=== PATIENT | female | born 1995 | race African-American/Black ===

== ENCOUNTER 2016-11-07 15:03 | Emergency (ER) | payer OTHER ==
[2016-11-07] MEDS ORDERED: KETOROLAC 30 MG/ML VIAL (J1885) As Ordered ONE (19:06)
--- NOTE | 2016-11-07 19:07 | REP ---
Chest x-ray: Two views. History: Chest pain . Comparison study: No comparisons . Findings: The lungs are well inflated and free of infiltrate. The pleural angles are sharp. The heart size is normal. Pulmonary vasculature is not increased. No significant bony abnormality is seen. Impression: Negative chest x-ray. Signed by Girish Potter MD 11/07/2016 06:58 P
[2016-11-07 19:13] LABS: BASO # 0.1 K/mm3 (0.0-0.2); BASO % 1.5 % (0.0-1.0); EOS # 0.1 K/mm3 (0.0-0.50); LARGE UNSTAINED CELL # 0.2 K/mm3 (0.0-0.4); LARGE UNSTAINED CELL % 2.9 % (0.0-4.0); LYMPH # 2.3 K/mm3 (1.5-6.5); LYMPH % 40.5 % (24.0-44.0); MEAN CORPUSCULAR HEMOGLOBIN 28.9 pg (27.0-33.0); MEAN CORPUSCULAR HGB CONC 33.3 g/dl (32.0-36.5); MEAN CORPUSCULAR VOLUME 86.8 fl (80.0-96.0); MONO # 0.4 K/mm3 (0.0-0.8); MONO % 7.5 % (0.0-5.0); NEUTROPHILS # 2.5 K/mm3 (1.8-7.7); NEUTROPHILS % 45.6 % (36.0-66.0); PLATELET COUNT, AUTOMATED 285 k/mm3 (150-450); RED CELL DISTRIBUTION WIDTH 12.7 % (11.5-14.5); WHITE BLOOD COUNT 5.4 K/mm3 (4.0-10.0)
[2016-11-07 19:42] LABS: ALBUMIN 3.6 GM/DL (3.2-5.2); ALBUMIN/GLOBULIN RATIO 0.86 (1.00-1.93); ALKALINE PHOSPHATASE 86 U/L (45-117); ALT/SGPT 15 U/L (12-78); AMYLASE 56 U/L (25-115); ANION GAP 8 MEQ/L (8-16); AST/SGOT 8 U/L (15-37); BILIRUBIN,DIRECT < 0.1 MG/DL (0.0-0.2); BILIRUBIN,TOTAL 0.4 MG/DL (0.2-1.0); BLOOD UREA NITROGEN 6 MG/DL (7-18); CALCIUM LEVEL 8.5 MG/DL (8.5-10.1); CARBON DIOXIDE LEVEL 27 MEQ/L (21-32); CHLORIDE LEVEL 106 MEQ/L (98-107); CREATININE FOR GFR 0.86 MG/DL (0.55-1.02); GLUCOSE, FASTING 89 MG/DL (70-105); POTASSIUM SERUM 3.9 MEQ/L (3.5-5.1); SODIUM LEVEL 141 MEQ/L (136-145); TOTAL PROTEIN 7.8 GM/DL (6.4-8.2)
--- NOTE | 2016-11-07 20:00 | REPUSA ---
CLINICAL HISTORY: Abdominal pain. TECHNIQUE: Realtime sonographic images were obtained in multiple projections. COMMENTS: The liver is of normal size, parenchyma demonstrates normal echogenicity. No discrete hepatic mass is seen. There is no intra or extrahepatic biliary ductal dilatation. CBD measures 2 mm. The gallbladder is ph ysiologically distended without evidence of calculi. The gallbladder wall is not thickened and there is no pericholecystic fluid. There is no abdominal ascites. The right kidney measures 10.2 cm , free of hydronephrosis. IMPRESSION: Unremarkable study. Thank you for your kind referral of this patient.
[2016-11-07] MEDS ORDERED: ISOVUE-370 76% 100ML VIAL (Q9967) As Ordered ONE (20:04)
--- NOTE | 2016-11-07 20:50 | REPUSA ---
CLINICAL INDICATION: Evaluate for pulmonary embolism. COMPARISON: None TECHNIQUE: CT pulmonary angiogram was performed with intravenous contrast. 3D/MIPS technique was util ized with multiplanar reconstructions in sagittal and coronal projections. FINDINGS: LINES AND DEVICES: None PULMONARY ARTERY: The pulmonary artery is normal in caliber. There is no evidence of filling defects in the main, right or left main, lobar, segmental, and visualized subsegmental pulmonary arteries. AORTA: Normal in caliber with no evidence of gross dissection or aneurysm. LOWER NECK/THYROID: Thyroid gland is unremarkable. No mass, suspicious cystic lesion, or enlarged wayne nopathy. AXILLA/HILUM/MEDIASTINUM : No enlarged adenopathy, mass, suspicious cystic lesion, or fluid collectio n. HEART: Heart is normal in size without pericardial effusion. AIRWAYS, LUNGS AND PLEURA: No acute infiltrate, effusion, mass, suspicious nodule, or pneumothorax. C entral and visualized peripheral airways are patent. UPPER ABDOMEN: Visualized upper abdominal organs are unremarkable. OSSEOUS STRUCTURES: No fracture or suspicious lesion SOFT TISSUES AND THORACIC WALL : No soft tissue abnormality or hernia. OTHER: No other significant abnormalities. IMPRESSION: No evidence of pulmonary embolism.
--- NOTE | 2016-11-07 21:29 | EDDOCDS ---
Physician Documentation [facility] Name: Edwar Ray Age: 20 yrs Sex: Female : 1995 Arrival Date: 11/07/2016 Time: 15:03 Bed I6 / 28 Private MD: JEROD Garza Disposition: 11/07/16 21:19 Discharged to Home/Self Care. Impression: Chest pain, unspecified - ATYPICAL, Upper abdominal pain, unspecified. - Condition is Stable. - Discharge Instructions: Abdominal Pain, Adult, Nonspecific Chest Pain. - Prescriptions for Ibuprofen 600 mg Oral Tablet - take 1 tablet by ORAL route every 6 hours As needed take with food; 30 tablet. Prilosec 20 mg Oral Capsule - take 1 capsule by ORAL route once daily; 10 capsule. - Medication Reconciliation, Local Pharmacy Hours form. - Follow up: JEROD Garza; When: Tomorrow; Reason: Recheck today's complaints, Continuance of care. - Problem is new. - Symptoms have improved. - Notes: USE MEDICATIONS INSTRUTCED, FOLLOW UP WITH YOUR DOCTOR TOMORROW, RETURN TO THE ER IF THE SYMPTOMS WORSEN OR BECOME CONCERNING Historical: - Allergies: no known allergies; - Home Meds: 1. none - PMHx: Migraines; - PSHx: none; - Social history: Smoking status: Patient states was never smoker of tobacco. No barriers to communication noted, The patient speaks fluent Australian, Speaks appropriately for age. - Family history: Not pertinent. - : The pt / caregiver states he / she is not on anticoagulants. Home medication list is obtained from the patient. - Exposure Risk Screening:: None identified. RELIEF MAN: 11/07 15:14 LMP 09/25/2016 mlb1 Vital Signs: 15:06 BP 113 / 65; Pulse 76; Resp 18 S; Temp 98.3(O); Pulse Ox 100% on R/A; Weight 92.99 kg / gr2 205.01 lbs (R); Height 5 ft. 3 in. (160.02 cm) (R); Pain 6/10; 19:41 BP 100 / 59; Pulse 60; Resp 18; Temp 97.9; Pulse Ox 100% ; Pain 6/10; ajs 21:26 BP 99 / 67; Pulse 63; Resp 18; Temp 98.6; Pulse Ox 99% ; Pain 5/10; ajs 15:06 Body Mass Index 36.31 (92.99 kg, 160.02 cm) gr2 MDM: 17:37 ECG WITH READING ER PHYS+CARDIAG ordered. EDMS 18:07 UCG by Nursing ordered. ck7 18:39 Undress patient appropriately for examination ordered. ck7 18:39 ketorolac 30 mg IVP once ordered. ck7 18:39 IV Saline Lock ordered. ck7 18:39 NS 0.9% 1000 ml IV at bolus once ordered. ck7 18:40 Amylase Ordered. EDMS 18:40 Basic Metabolic Profile Ordered. EDMS 18:40 CBC with Diff Ordered. EDMS 18:40 Lipase Ordered. EDMS 18:40 Liver Profile Ordered. EDMS 18:40 Urinalysis Ordered. EDMS 18:40 Cardiac Marker Panel Ordered. EDMS 18:40 D-Dimer Quant Ordered. EDMS 18:41 Urine Culture Ordered. EDMS 18:41 Gallbladder US Ordered. EDMS 18:41 Chest, 2 View (pa\E\lat) Ordered. EDMS 18:41 NOTHING BY MOUTH+DIET ordered. EDMS 19:48 Basic Metabolic Profile Reviewed. ck7 19:48 CBC with Diff Reviewed. ck7 19:48 Liver Profile Reviewed. ck7 19:48 Urinalysis Reviewed. ck7 19:48 D-Dimer Quant Reviewed. ck7 19:48 Amylase Reviewed. ck7 19:48 Lipase Reviewed. ck7 19:48 Cardiac Marker Panel Reviewed. ck7 19:48 Chest, 2 View (pa\E\lat) Reviewed. ck7 19:49 [facility] [place] Agreement was scanned into [employer] and attached to record. gjb 19:49 Financial registration complete. gjb 19:52 CT Chest Angio R/O PE Ordered. EDMS 20:33 Gallbladder US Reviewed. ck7 Point of Care Testing: Urine : 18:29 hCG Reading: Negative; Control Reading: Positive; cmb Ranges: Administered Medications: 19:10 Drug: ketorolac 30 mg [ketorolac 30 mg/mL (1 mL) injection solution (1 mL)] Route: IVP; jmb Site: right antecubital; 19:10 Drug: NS 0.9% 1000 ml [sodium chloride 0.9 % intravenous solution] Route: IV; Rate: jmb bolus; Site: right antecubital; 21:28 Follow up: IV Status: Completed infusion; IV Intake: 1000ml dsf Signatures: Dispatcher [employer] Alan Mendez RN RN mlAmanda Phillips RN RN dsf Griffin Luciano, RPA-C RPA-Cck7 Kamlesh Frances RN RN jmb Beck, Gabriela gjb The chart was reviewed and I authenticate all verbal orders and agree with the evaluation and treatment provided.Attachments: 19:49 [facility] Payment Agreement sridhar MTDD
--- NOTE | 2016-11-07 21:29 | EDDOCDS ---
Nurse's Notes [facility] Name: Edwar Ray Age: 20 yrs Sex: Female : 1995 Arrival Date: 11/07/2016 Time: 15:03 Bed I6 / 28 Private MD: JEROD Garza Diagnosis: Chest pain, unspecified-ATYPICAL;Upper abdominal pain, unspecified Presentation: 11/07 15:12 Presenting complaint: Patient states: Lower abdominal pain and sub sternal chest pain mlb1 began a month ago. Risk factors: the patient reports no vaginal bleeding. Adult Sepsis Screening: The patient does not have new or worsening altered mentation. Patient's respiratory rate is less than 22. Systolic blood pressure is greater than 100. Patient has a qSOFA score of 0- Negative Sepsis Screen. Suicide/Homicide risk assessment- the patient denies having any suicidal and/or homicidal ideations and does not present with any other emotional, behavioral or mental health complaints. Status: Patient is not a branch service specialist or dependent. Transition of care: patient was not received from another setting of care. 15:12 Acuity: MADELAINE Level 3 mlb1 15:12 Method Of Arrival: Walkin/Carried/Asstd mlb1 Triage Assessment: 15:14 General: Appears in no apparent distress, comfortable, Behavior is appropriate for age, mlb1 cooperative. Pain: Location: mid-sternal area, RLQ, LLQ Pain currently is 6 out of 10 on a pain scale. 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 SODA DISPENSER: 15:14 LMP 09/25/2016 mlb1 Historical: - Allergies: no known allergies; - Home Meds: 1. none - PMHx: Migraines; - PSHx: none; - Social history: Smoking status: Patient states was never smoker of tobacco. No barriers to communication noted, The patient speaks fluent Czech, Speaks appropriately for age. - Family history: Not pertinent. - : The pt / caregiver states he / she is not on anticoagulants. Home medication list is obtained from the patient. - Exposure Risk Screening:: None identified. Screenin:10 Screening information is obtained from the patient. Fall risk: No risks identified. jmb Assistance ADL's: requires no assistance with activities of daily living. Abuse/DV Screen: The patient / caregiver reports he/she is: not in a situation that causes fear, pain or injury. Nutritional screening: No deficits noted. home support is adequate. 21:26 Advance Directives: Currently, there is no health care proxy. dsf Assessment: 16:51 General: Appears in no apparent distress, comfortable, well nourished, well groomed, ttb Behavior is appropriate for age, cooperative, pleasant. Pain: Location: lower abd. Neurological: No deficits noted. Cardiovascular: Chest pain is denied. GI: Abdomen is non- distended. Derm: Skin is normal. 19:10 General: Appears in no apparent distress, comfortable, Behavior is appropriate for age, jmb cooperative. Pain: Location: chest Pain currently is 6 out of 10 on a pain scale. Neurological: Level of Consciousness is awake, alert, obeys commands, Oriented to person, place, time, Certified Phlebotomy Technician are equal bilaterally Speech is normal, Facial symmetry appears normal, Facial symmetry: tongue is midline. Cardiovascular: Capillary refill < 3 seconds Heart tones S1 S2 present Pulses are all present. Rhythm is regular. Respiratory: Airway is patent Respiratory effort is even, unlabored, Respiratory pattern is regular, symmetrical, Breath sounds are diminished bilaterally. GI: Abdomen is obese, Bowel sounds present X 4 quads. Abd is soft X 4 quads. Derm: Skin is normal. Musculoskeletal: Range of motion intact in all extremities. 21:15 General: Appears in no apparent distress, comfortable, Behavior is appropriate for age, jmb cooperative. Neurological: Level of Consciousness is awake, alert, obeys commands, Oriented to person, place, time. Respiratory: Airway is patent Respiratory effort is even, unlabored, Respiratory pattern is regular, symmetrical. 21:26 Adult Sepsis Screening: The patient does not have new or worsening altered mentation. dsf Patient's respiratory rate is less than 22. Systolic blood pressure is less than or equal to 100 (1 point). Patient has a qSOFA score of 1- Negative Sepsis Screen. General: Appears in no apparent distress, comfortable, Behavior is appropriate for age, cooperative. Neurological: Level of Consciousness is awake, alert. Cardiovascular: Capillary refill < 3 seconds. Respiratory: Airway is patent Respiratory effort is even, unlabored, Respiratory pattern is regular, symmetrical. Derm: Skin is pink, warm & dry. Vital Signs: 15:06 BP 113 / 65; Pulse 76; Resp 18 S; Temp 98.3(O); Pulse Ox 100% on R/A; Weight 92.99 kg gr2 (R); Height 5 ft. 3 in. (160.02 cm) (R); Pain 6/10; 19:41 BP 100 / 59; Pulse 60; Resp 18; Temp 97.9; Pulse Ox 100% ; Pain 6/10; ajs 21:26 BP 99 / 67; Pulse 63; Resp 18; Temp 98.6; Pulse Ox 99% ; Pain 5/10; ajs 15:06 Body Mass Index 36.31 (92.99 kg, 160.02 cm) gr2 Vitals: 15:06 Log In Time: November 07, 2016 at 15:06. gr2 ED Course: 15:05 Patient visited by Aarti Levine. gr2 15:05 Kayla [facility] is Private Physician. gr2 15:05 Patient moved to Waiting gr2 15:07 Patient visited by Aarti Levine. gr2 15:07 Patient moved to Pre RCE gr2 15:12 Patient visited by Alan Valdes RN. mlb1 15:13 Triage Initiated mlb1 16:49 Patient moved to Triage 2 ttb 16:51 Patient visited by Margo Andrews, LEONARDO. ttb 17:32 Griffin Luciano RPA-C is PHCP. ck7 17:32 Nicci Roberson MD is Attending Physician. ck7 17:32 Patient visited by Griffin Luciano RPA-C. ck7 17:40 EKG done. (by ED staff). Reviewed by Griffin CORBETT. cmb 17:43 Patient visited by Candida Krueger. cmb 18:18 Patient visited by Griffin Luciano RPA-C. ck7 18:29 Patient visited by Candida Krueger. cmb 18:41 Patient moved to I mdr 19:10 The patient / caregiver is instructed regarding the plan of care and ED course. jmb 19:10 Cardiac Marker Panel Sent. jmb 19:10 Amylase Sent. jmb 19:10 Basic Metabolic Profile Sent. jmb 19:10 CBC with Diff Sent. jmb 19:10 Lipase Sent. jmb 19:10 Liver Profile Sent. jmb 19:10 D-Dimer Quant Sent. jmb 19:10 Inserted saline lock: 20 gauge in right antecubital area and blood collected. The jmb patient tolerated the procedure well. Labs drawn. (by ED staff). Sent per order to lab. 19:11 Chest, 2 View (pa\E\lat) Returned. EDMS 19:13 Patient visited by Kamlesh Frances RN. jmb 19:14 Patient moved to Ultrasound am17 19:29 Patient moved to I am17 19:41 Patient visited by Jennifer Beckett. ajs 19:49 [facility] Payment Agreement was scanned into [employer] and attached to record. gjb 20:13 Patient visited by Griffin Luciano RPA-C. ck7 20:13 Gallbladder US Returned. EDMS 20:20 Patient name changed from Nessayvia\S\Melina\S\Ray\S\ to Edwar\S\ \S\Ray. EDMS 20:48 Patient visited by Griffin Luciano RPA-C. ck7 21:14 CT Chest Angio R/O PE Returned. EDMS 21:16 Patient visited by Kamlesh Frances RN. jmb 21:19 Kayla [facility] is Referral Physician. ck7 21:25 Discontinued lock intact, bleeding controlled, pressure dressing applied, No dsf redness/swelling at site. No procedures done that require assistance. 21:26 Patient visited by Jennifer Beckett. ajs Administered Medications: 19:10 Drug: ketorolac 30 mg [ketorolac 30 mg/mL (1 mL) injection solution (1 mL)] Route: IVP; b Site: right antecubital; 19:10 Drug: NS 0.9% 1000 ml [sodium chloride 0.9 % intravenous solution] Route: IV; Rate: jmb bolus; Site: right antecubital; 21:28 Follow up: IV Status: Completed infusion; IV Intake: 1000ml dsf Point of Care Testing: Urine : 18:29 hCG Reading: Negative; Control Reading: Positive; cmb Ranges: Intake: 21:28 IV: 1000.00ml; Total: 1000.00ml. dsf Order Results: Lab Order: Amylase; SPEC'M 11/07/16 19:06 Test: AMYLASE; Value: 56; Range: 25-115; Units: U/L; Status: F Lab Order: Basic Metabolic Profile; SPEC'M 11/07/16 19:06 Test: GLUCOSE, FASTING; Value: 89; Range: 70-105; Units: MG/DL; Status: F Test: BLOOD UREA NITROGEN; Value: 6; Range: 7-18; Abnormal: Below low normal; Units: MG/DL; Status: F Test: CREATININE FOR GFR; Value: 0.86; Range: 0.55-1.02; Units: MG/DL; Status: F Test: SODIUM LEVEL; Value: 141; Range: 136-145; Units: MEQ/L; Status: F Test: POTASSIUM SERUM; Value: 3.9; Range: 3.5-5.1; Units: MEQ/L; Status: F Test: CHLORIDE LEVEL; Value: 106; Range: 98-107; Units: MEQ/L; Status: F Test: CARBON DIOXIDE LEVEL; Value: 27; Range: 21-32; Units: MEQ/L; Status: F Test: ANION GAP; Value: 8; Range: 8-16; Units: MEQ/L; Status: F Test: CALCIUM LEVEL; Value: 8.5; Range: 8.5-10.1; Units: MG/DL; Status: F Lab Order: CBC with Diff; SPEC'M 11/07/16 19:06 Test: WHITE BLOOD COUNT; Value: 5.4; Range: 4.0-10.0; Units: K/mm3; Status: F Test: RED BLOOD COUNT; Value: 4.76; Range: 4.00-5.40; Units: M/mm3; Status: F Test: HEMOGLOBIN; Value: 13.8; Range: 12.0-16.0; Units: g/dl; Status: F Test: HEMATOCRIT; Value: 41.3; Range: 36.0-47.0; Units: %; Status: F Test: MEAN CORPUSCULAR VOLUME; Value: 86.8; Range: 80.0-96.0; Units: fl; Status: F Test: MEAN CORPUSCULAR HEMOGLOBIN; Value: 28.9; Range: 27.0-33.0; Units: pg; Status: F Test: MEAN CORPUSCULAR HGB CONC; Value: 33.3; Range: 32.0-36.5; Units: g/dl; Status: F Test: RED CELL DISTRIBUTION WIDTH; Value: 12.7; Range: 11.5-14.5; Units: %; Status: F Test: PLATELET COUNT, AUTOMATED; Value: 285; Range: 150-450; Units: k/mm3; Status: F Test: NEUTROPHILS %; Value: 45.6; Range: 36.0-66.0; Units: %; Status: F Test: LYMPH %; Value: 40.5; Range: 24.0-44.0; Units: %; Status: F Test: MONO %; Value: 7.5; Range: 0.0-5.0; Abnormal: Above high normal; Units: %; Status: F Test: EOS %; Value: 2.0; Range: 0.0-3.0; Units: %; Status: F Test: BASO %; Value: 1.5; Range: 0.0-1.0; Abnormal: Above high normal; Units: %; Status: F Test: LARGE UNSTAINED CELL %; Value: 2.9; Range: 0.0-4.0; Units: %; Status: F Test: NEUTROPHILS #; Value: 2.5; Range: 1.8-7.7; Units: K/mm3; Status: F Test: LYMPH #; Value: 2.3; Range: 1.5-6.5; Units: K/mm3; Status: F Test: MONO #; Value: 0.4; Range: 0.0-0.8; Units: K/mm3; Status: F Test: EOS #; Value: 0.1; Range: 0.0-0.50; Units: K/mm3; Status: F Test: BASO #; Value: 0.1; Range: 0.0-0.2; Units: K/mm3; Status: F Test: LARGE UNSTAINED CELL #; Value: 0.2; Range: 0.0-0.4; Units: K/mm3; Status: F Lab Order: Lipase; SPEC'M 11/07/16 19:06 Test: LIPASE; Value: 110; Range: 73-393; Units: U/L; Status: F Lab Order: Liver Profile; SPEC'M 11/07/16 19:06 Test: AST/SGOT; Value: 8; Range: 15-37; Abnormal: Below low normal; Units: U/L; Status: F Test: ALT/SGPT; Value: 15; Range: 12-78; Units: U/L; Status: F Test: ALKALINE PHOSPHATASE; Value: 86; Range: 45-117; Units: U/L; Status: F Test: BILIRUBIN,TOTAL; Value: 0.4; Range: 0.2-1.0; Units: MG/DL; Status: F Test: BILIRUBIN,DIRECT; Value: < 0.1; Range: 0.0-0.2; Units: MG/DL; Status: F Test: TOTAL PROTEIN; Value: 7.8; Range: 6.4-8.2; Units: GM/DL; Status: F Test: ALBUMIN; Value: 3.6; Range: 3.2-5.2; Units: GM/DL; Status: F Test: ALBUMIN/GLOBULIN RATIO; Value: 0.86; Range: 1.00-1.93; Abnormal: Below low normal; Status: F Lab Order: Urinalysis; SPEC'M 11/07/16 18:41 Test: APPEARANCE, URINE; Value: CLEAR; Range: CLEAR; Status: F Test: COLOR, URINE; Value: YELLOW; Range: YELLOW; Status: F Test: PH,URINE; Value: 5.0; Range: 5.0-9.0; Units: UNITS; Status: F Test: SPECIFIC GRAVITY URINE AUTO; Value: 1.015; Range: 1.002-1.035; Status: F Test: PROTEIN, URINE AUTO; Value: NEGATIVE; Range: NEGATIVE; Units: mg/dL; Status: F Test: GLUCOSE, URINE (UA) AUTO; Value: NEGATIVE; Range: NEGATIVE; Units: mg/dL; Status: F Test: KETONE, URINE AUTO; Value: NEGATIVE; Range: NEGATIVE; Units: mg/dL; Status: F Test: UROBILINOGEN, URINE AUTO; Value: 0.2; Range: 0.0-2.0; Units: mg/dL; Status: F Test: BILIRUBIN, URINE AUTO; Value: NEGATIVE; Range: NEGATIVE; Status: F Test: NITRITE, URINE AUTO; Value: NEGATIVE; Range: NEGATIVE; Status: F Test: LEUKOCYTE ESTERASE, URINE AUTO; Value: NEGATIVE; Range: NEGATIVE; Status: F Test: BLOOD, URINE BLOOD; Value: 1+; Range: NEGATIVE; Abnormal: Above high normal; Status: F Test: WBC, URINE AUTO; Value: 2; Range: 0-3; Units: /HPF; Status: F Test: RBC, URINE AUTO; Value: 1; Range: 0-3; Units: /HPF; Status: F Test: BACTERIA, URINE AUTO; Value: 1+; Range: NEGATIVE; Abnormal: Above high normal; Status: F Test: SQUAMOUS EPITHELIAL CELL UR AU; Value: 2; Range: 0-6; Units: /HPF; Status: F Test: MUCUS, URINE; Value: SMALL; Range: NEGATIVE; Status: F Test: HYALINE CAST, URINE AUTO; Value: 0; Range: 0-1; Units: /LPF; Status: F Lab Order: Cardiac Marker Panel; SPEC'M 11/07/16 19:06 Test: CPK CREATINE PHOSPHOKINASE; Value: 135; Range: 26-192; Units: U/L; Status: F Test: CK-MB VALUE MASS; Value: 1.0; Range: 0.0-3.6; Units: NG/ML; Status: F Test: MB/CK RELATIVE INDEX; Value: 0.74; Range: < OR =4; Status: F Test: TROPONIN I; Value: < 0.02; Range: < 0.10; Units: NG/ML; Status: F Test Note: ; DIAGNOSIS CRITERIA MMB ng/ml Relative Index (RI) NON-AMI < or = 5 N/A [place] > 5 < or = 4 AMI > 5 > 4 Lab Order: D-Dimer Quant; SPEC'M 11/07/16 19:06 Test: D-DIMER QUANT; Value: 2338.6; Range: <500; Abnormal: Above high normal; Units: ng/ml; Status: F Radiology Order: Chest, 2 View (pa\E\lat) Test: Chest, 2 View (pa\E\lat) REASON FOR EXAMINATION: Chest Pain; Chest x-ray: Two views.; ; History: Chest pain .; ; Comparison study: No comparisons .; ; Findings: The lungs are well inflated and free of infiltrate. The pleural; angles are sharp. The heart size is normal. Pulmonary vasculature is not; increased. No significant bony abnormality is seen.; ; Impression:; ; Negative chest x-ray.; ; ; Signed by; Girish Potter MD 11/07/2016 06:58 P; Radiology Order: Gallbladder US Test: Gallbladder US REASON FOR EXAMINATION: Biliary Colic; ; CLINICAL HISTORY: Abdominal pain.; TECHNIQUE: Realtime sonographic images were obtained in multiple projections.; COMMENTS:; The liver is of normal size, parenchyma demonstrates normal echogenicity. No discrete hepatic mass is; seen.; There is no intra or extrahepatic biliary ductal dilatation. CBD measures 2 mm. The gallbladder is ph; ysiologically distended without evidence of calculi. The gallbladder wall is not thickened and there; is no pericholecystic fluid. There is no abdominal ascites.; The right kidney measures 10.2 cm , free of hydronephrosis.; IMPRESSION:; Unremarkable study.; Thank you for your kind referral of this patient.; ; Radiology Order: CT Chest Angio R/O PE Test: CT Chest Angio R/O PE REASON FOR EXAMINATION: CHEST PAIN, +D-DIMER, R/O PE; ; CLINICAL INDICATION: Evaluate for pulmonary embolism.; COMPARISON: None; TECHNIQUE: CT pulmonary angiogram was performed with intravenous contrast. 3D/MIPS technique was util; ized with multiplanar reconstructions in sagittal and coronal projections.; FINDINGS:; LINES AND DEVICES: None; PULMONARY ARTERY: The pulmonary artery is normal in caliber. There is no evidence of filling defects; in the main, right or left main, lobar, segmental, and visualized subsegmental pulmonary arteries.; AORTA: Normal in caliber with no evidence of gross dissection or aneurysm.; LOWER NECK/THYROID: Thyroid gland is unremarkable. No mass, suspicious cystic lesion, or enlarged wayne; nopathy.; AXILLA/HILUM/MEDIASTINUM : No enlarged adenopathy, mass, suspicious cystic lesion, or fluid collectio; n.; HEART: Heart is normal in size without pericardial effusion.; AIRWAYS, LUNGS AND PLEURA: No acute infiltrate, effusion, mass, suspicious nodule, or pneumothorax. C; entral and visualized peripheral airways are patent.; UPPER ABDOMEN: Visualized upper abdominal organs are unremarkable.; OSSEOUS STRUCTURES: No fracture or suspicious lesion; SOFT TISSUES AND THORACIC WALL : No soft tissue abnormality or hernia.; OTHER: No other significant abnormalities.; IMPRESSION:; No evidence of pulmonary embolism.; ; Outcome: 21:19 Discharge ordered by Provider. ck7 21:25 Discharge Assessment: Patient awake, alert and oriented x 3. No cognitive and/or dsf functional deficits noted. Patient verbalized understanding of disposition instructions. patient administered narcotics - no. The following High Risk Discharge criteria are identified: None. Discharged to home ambulatory. Condition: stable. Discharge instructions given to patient, Instructed on discharge instructions, follow up and referral plans. medication usage, Demonstrated understanding of instructions, medications, Pt was receptive of discharge instructions/ teaching. Prescriptions given X 2. CT Study completed. Property sent home with patient. 21:27 Patient left the ED. dsf Signatures: Dispatcher [employer] EDMS Alan Valdes RN RN mlb1 Amanda Zimmer,RN RN dsf Jennifer Beckett [place] cmb Griffin Luciano, RPA-C RPA-Cck7 Margo Andrews, RN RN ttb Aarti Levine gr2 Kamlesh Frances,LEONARDO RN Zulma Rodriguez am17 Joel Waite, CHANG SIGN LETTERER Sil Urrutia KOLBY
--- NOTE | 2016-11-08 07:24 | ECGEPIP ---
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
--- NOTE | 2016-11-09 22:29 | EDDOCDS ---
Physician Documentation [facility] Name: Edwar Ray Age: 20 yrs Sex: Female : 1995 Arrival Date: 11/07/2016 Time: 15:03 Bed I6 / 28 Private MD: JEROD Garza Disposition: 11/07/16 21:19 Discharged to Home/Self Care. Impression: Chest pain, unspecified - ATYPICAL, Upper abdominal pain, unspecified. - Condition is Stable. - Discharge Instructions: Abdominal Pain, Adult, Nonspecific Chest Pain. - Prescriptions for Ibuprofen 600 mg Oral Tablet - take 1 tablet by ORAL route every 6 hours As needed take with food; 30 tablet. Prilosec 20 mg Oral Capsule - take 1 capsule by ORAL route once daily; 10 capsule. - Medication Reconciliation, Local Pharmacy Hours form. - Follow up: JEROD Garza; When: Tomorrow; Reason: Recheck today's complaints, Continuance of care. - Problem is new. - Symptoms have improved. - Notes: USE MEDICATIONS INSTRUTCED, FOLLOW UP WITH YOUR DOCTOR TOMORROW, RETURN TO THE ER IF THE SYMPTOMS WORSEN OR BECOME CONCERNING Historical: - Allergies: no known allergies; - Home Meds: 1. none - PMHx: Migraines; - PSHx: none; - Social history: Smoking status: Patient states was never smoker of tobacco. No barriers to communication noted, The patient speaks fluent Gibraltarian, Speaks appropriately for age. - Family history: Not pertinent. - : The pt / caregiver states he / she is not on anticoagulants. Home medication list is obtained from the patient. - Exposure Risk Screening:: None identified. 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 3 in. (160.02 cm) (R); Pain 6/10; 19:41 BP 100 / 59; Pulse 60; Resp 18; Temp 97.9; Pulse Ox 100% ; Pain 6/10; ajs 21:26 BP 99 / 67; Pulse 63; Resp 18; Temp 98.6; Pulse Ox 99% ; Pain 5/10; ajs 15:06 Body Mass Index 36.31 (92.99 kg, 160.02 cm) gr2 MDM: 17:37 ECG WITH READING ER PHYS+CARDIAG ordered. EDMS 18:07 UCG by Nursing ordered. ck7 18:39 Undress patient appropriately for examination ordered. ck7 18:39 ketorolac 30 mg IVP once ordered. ck7 18:39 IV Saline Lock ordered. ck7 18:39 NS 0.9% 1000 ml IV at bolus once ordered. ck7 18:40 Amylase Ordered. EDMS 18:40 Basic Metabolic Profile Ordered. EDMS 18:40 CBC with Diff Ordered. EDMS 18:40 Lipase Ordered. EDMS 18:40 Liver Profile Ordered. EDMS 18:40 Urinalysis Ordered. EDMS 18:40 Cardiac Marker Panel Ordered. EDMS 18:40 D-Dimer Quant Ordered. EDMS 18:41 Urine Culture Ordered. EDMS 18:41 Gallbladder US Ordered. EDMS 18:41 Chest, 2 View (pa\E\lat) Ordered. EDMS 18:41 NOTHING BY MOUTH+DIET ordered. EDMS 19:48 Basic Metabolic Profile Reviewed. ck7 19:48 CBC with Diff Reviewed. ck7 19:48 Liver Profile Reviewed. ck7 19:48 Urinalysis Reviewed. ck7 19:48 D-Dimer Quant Reviewed. ck7 19:48 Amylase Reviewed. ck7 19:48 Lipase Reviewed. ck7 19:48 Cardiac Marker Panel Reviewed. ck7 19:48 Chest, 2 View (pa\E\lat) Reviewed. ck7 19:49 [facility] [place] Agreement was scanned into [employer] and attached to record. gjb 19:49 Financial registration complete. gjb 19:52 CT Chest Angio R/O PE Ordered. EDMS 20:33 Gallbladder US Reviewed. ck7 11/08 12:58 T-Sheet-- Draft Copy was scanned into [employer] and attached to record. gb 12:59 ECG/EKG was scanned into [employer] and attached to record. gb Point of Care Testing: Urine : 11/07 18:29 hCG Reading: Negative; Control Reading: Positive; cmb Ranges: Administered Medications: 19:10 Drug: ketorolac 30 mg [ketorolac 30 mg/mL (1 mL) injection solution (1 mL)] Route: IVP; jmb Site: right antecubital; 19:10 Drug: NS 0.9% 1000 ml [sodium chloride 0.9 % intravenous solution] Route: IV; Rate: jmb bolus; Site: right antecubital; 21:28 Follow up: IV Status: Completed infusion; IV Intake: 1000ml f Signatures: Dispatcher [employer] EDMS Vandana Corey, Reg Reg gb Alan Valdes RN RN mlAmanda Phillips RN RN dsf Griffin Luciano, RPA-C [id number] Kamlesh Frances RN RN jmb Beck, Gabriela gjb The chart was reviewed and I authenticate all verbal orders and agree with the evaluation and treatment provided.Attachments: 19:49 [facility] Payment Agreement gjb 11/08 12:58 T-Sheet-- Draft Copy gb 12:59 ECG/EKG Chart Complete MTDD
--- NOTE | 2016-11-09 22:29 | EDDOCDS ---
Physician Documentation [facility] Name: Edwar Ray Age: 20 yrs Sex: Female : 1995 Arrival Date: 11/07/2016 Time: 15:03 Bed I6 / 28 Private MD: JEROD Garza Disposition: 11/07/16 21:19 Discharged to Home/Self Care. Impression: Chest pain, unspecified - ATYPICAL, Upper abdominal pain, unspecified. - Condition is Stable. - Discharge Instructions: Abdominal Pain, Adult, Nonspecific Chest Pain. - Prescriptions for Ibuprofen 600 mg Oral Tablet - take 1 tablet by ORAL route every 6 hours As needed take with food; 30 tablet. Prilosec 20 mg Oral Capsule - take 1 capsule by ORAL route once daily; 10 capsule. - Medication Reconciliation, Local Pharmacy Hours form. - Follow up: JEROD Garza; When: Tomorrow; Reason: Recheck today's complaints, Continuance of care. - Problem is new. - Symptoms have improved. - Notes: USE MEDICATIONS INSTRUTCED, FOLLOW UP WITH YOUR DOCTOR TOMORROW, RETURN TO THE ER IF THE SYMPTOMS WORSEN OR BECOME CONCERNING Historical: - Allergies: no known allergies; - Home Meds: 1. none - PMHx: Migraines; - PSHx: none; - Social history: Smoking status: Patient states was never smoker of tobacco. No barriers to communication noted, The patient speaks fluent Burkinan, Speaks appropriately for age. - Family history: Not pertinent. - : The pt / caregiver states he / she is not on anticoagulants. Home medication list is obtained from the patient. - Exposure Risk Screening:: None identified. 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 3 in. (160.02 cm) (R); Pain 6/10; 19:41 BP 100 / 59; Pulse 60; Resp 18; Temp 97.9; Pulse Ox 100% ; Pain 6/10; ajs 21:26 BP 99 / 67; Pulse 63; Resp 18; Temp 98.6; Pulse Ox 99% ; Pain 5/10; ajs 15:06 Body Mass Index 36.31 (92.99 kg, 160.02 cm) gr2 MDM: 17:37 ECG WITH READING ER PHYS+CARDIAG ordered. EDMS 18:07 UCG by Nursing ordered. ck7 18:39 Undress patient appropriately for examination ordered. ck7 18:39 ketorolac 30 mg IVP once ordered. ck7 18:39 IV Saline Lock ordered. ck7 18:39 NS 0.9% 1000 ml IV at bolus once ordered. ck7 18:40 Amylase Ordered. EDMS 18:40 Basic Metabolic Profile Ordered. EDMS 18:40 CBC with Diff Ordered. EDMS 18:40 Lipase Ordered. EDMS 18:40 Liver Profile Ordered. EDMS 18:40 Urinalysis Ordered. EDMS 18:40 Cardiac Marker Panel Ordered. EDMS 18:40 D-Dimer Quant Ordered. EDMS 18:41 Urine Culture Ordered. EDMS 18:41 Gallbladder US Ordered. EDMS 18:41 Chest, 2 View (pa\E\lat) Ordered. EDMS 18:41 NOTHING BY MOUTH+DIET ordered. EDMS 19:48 Basic Metabolic Profile Reviewed. ck7 19:48 CBC with Diff Reviewed. ck7 19:48 Liver Profile Reviewed. ck7 19:48 Urinalysis Reviewed. ck7 19:48 D-Dimer Quant Reviewed. ck7 19:48 Amylase Reviewed. ck7 19:48 Lipase Reviewed. ck7 19:48 Cardiac Marker Panel Reviewed. ck7 19:48 Chest, 2 View (pa\E\lat) Reviewed. ck7 19:49 [facility] [place] Payment Agreement was scanned into [facility] and attached to record. gjb 19:49 Financial registration complete. gjb 19:52 CT Chest Angio R/O PE Ordered. EDMS 20:33 Gallbladder US Reviewed. ck7 11/08 12:58 T-Sheet-- Draft Copy was scanned into [facility] and attached to record. gb 12:59 ECG/EKG was scanned into [facility] and attached to record. gb Point of Care Testing: Urine : 11/07 18:29 hCG Reading: Negative; Control Reading: Positive; cmb Ranges: Administered Medications: 19:10 Drug: ketorolac 30 mg [ketorolac 30 mg/mL (1 mL) injection solution (1 mL)] Route: IVP; jmb Site: right antecubital; 19:10 Drug: NS 0.9% 1000 ml [sodium chloride 0.9 % intravenous solution] Route: IV; Rate: jmb bolus; Site: right antecubital; 21:28 Follow up: IV Status: Completed infusion; IV Intake: 1000ml f Signatures: Dispatcher [employer] EDMS Vandana Corey, Reg Reg gb Alan Valdes RN RN mlAmanda Phillips RN RN dsf Griffin Luciano, RPA-C [id number] Kamlesh Frances RN RN jmb Beck, Gabriela gjb The chart was reviewed and I authenticate all verbal orders and agree with the evaluation and treatment provided.Attachments: 19:49 [facility] Payment Agreement gjb 11/08 12:58 T-Sheet-- Draft Copy gb 12:59 ECG/EKG Chart Complete MTDD
--- NOTE | 2016-11-09 22:29 | EDDOCDS ---
Nurse's Notes [facility] Name: Edwar Nath Age: 20 yrs Sex: Female : 1995 Arrival Date: 11/07/2016 Time: 15:03 Bed I6 / 28 Private MD: JEROD Garza Diagnosis: Chest pain, unspecified-ATYPICAL;Upper abdominal pain, unspecified Presentation: 11/07 15:12 Presenting complaint: Patient states: Lower abdominal pain and sub sternal chest pain mlb1 began a month ago. Risk factors: the patient reports no vaginal bleeding. Adult Sepsis Screening: The patient does not have new or worsening altered mentation. Patient's respiratory rate is less than 22. Systolic blood pressure is greater than 100. Patient has a qSOFA score of 0- Negative Sepsis Screen. Suicide/Homicide risk assessment- the patient denies having any suicidal and/or homicidal ideations and does not present with any other emotional, behavioral or mental health complaints. Status: Patient is not a service attendant cafeteria or dependent. Transition of care: patient was not received from another setting of care. 15:12 Acuity: MADELAINE Level 3 mlb1 15:12 Method Of Arrival: Walkin/Carried/Asstd mlb1 Triage Assessment: 15:14 General: Appears in no apparent distress, comfortable, Behavior is appropriate for age, mlb1 cooperative. Pain: Location: mid-sternal area, RLQ, LLQ Pain currently is 6 out of 10 on a pain scale. 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 none - PMHx: Migraines; - PSHx: none; - Social history: Smoking status: Patient states was never smoker of tobacco. No barriers to communication noted, The patient speaks fluent South Korean, Speaks appropriately for age. - Family history: Not pertinent. - : The pt / caregiver states he / she is not on anticoagulants. Home medication list is obtained from the patient. - Exposure Risk Screening:: None identified. Screenin:10 Screening information is obtained from the patient. Fall risk: No risks identified. jmb Assistance ADL's: requires no assistance with activities of daily living. Abuse/DV Screen: The patient / caregiver reports he/she is: not in a situation that causes fear, pain or injury. Nutritional screening: No deficits noted. home support is adequate. 21:26 Advance Directives: Currently, there is no health care proxy. dsf Assessment: 16:51 General: Appears in no apparent distress, comfortable, well nourished, well groomed, ttb Behavior is appropriate for age, cooperative, pleasant. Pain: Location: lower abd. Neurological: No deficits noted. Cardiovascular: Chest pain is denied. GI: Abdomen is non- distended. Derm: Skin is normal. 19:10 General: Appears in no apparent distress, comfortable, Behavior is appropriate for age, jmb cooperative. Pain: Location: chest Pain currently is 6 out of 10 on a pain scale. 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 Cardiovascular: Capillary refill < 3 seconds Heart tones S1 S2 present Pulses are all present. Rhythm is regular. Respiratory: Airway is patent Respiratory effort is even, unlabored, Respiratory pattern is regular, symmetrical, Breath sounds are diminished bilaterally. GI: Abdomen is obese, Bowel sounds present X 4 quads. Abd is soft X 4 quads. Derm: Skin is normal. Musculoskeletal: Range of motion intact in all extremities. 21:15 General: Appears in no apparent distress, comfortable, Behavior is appropriate for age, jmb cooperative. Neurological: Level of Consciousness is awake, alert, obeys commands, Oriented to person, place, time. Respiratory: Airway is patent Respiratory effort is even, unlabored, Respiratory pattern is regular, symmetrical. 21:26 Adult Sepsis Screening: The patient does not have new or worsening altered mentation. dsf Patient's respiratory rate is less than 22. Systolic blood pressure is less than or equal to 100 (1 point). Patient has a qSOFA score of 1- Negative Sepsis Screen. General: Appears in no apparent distress, comfortable, Behavior is appropriate for age, cooperative. Neurological: Level of Consciousness is awake, alert. Cardiovascular: Capillary refill < 3 seconds. Respiratory: Airway is patent Respiratory effort is even, unlabored, Respiratory pattern is regular, symmetrical. Derm: Skin is pink, warm & dry. Vital Signs: 15:06 BP 113 / 65; Pulse 76; Resp 18 S; Temp 98.3(O); Pulse Ox 100% on R/A; Weight 92.99 kg gr2 (R); Height 5 ft. 3 in. (160.02 cm) (R); Pain 6/10; 19:41 BP 100 / 59; Pulse 60; Resp 18; Temp 97.9; Pulse Ox 100% ; Pain 6/10; ajs 21:26 BP 99 / 67; Pulse 63; Resp 18; Temp 98.6; Pulse Ox 99% ; Pain 5/10; ajs 15:06 Body Mass Index 36.31 (92.99 kg, 160.02 cm) gr2 Vitals: 15:06 Log In Time: November 07, 2016 at 15:06. gr2 ED Course: 15:05 Patient visited by Aarti Levine. gr2 15:05 [facility] is Private Physician. gr2 15:05 Patient moved to Waiting gr2 15:07 Patient visited by Aarti Levine. gr2 15:07 Patient moved to Pre RCE gr2 15:12 Patient visited by Alan Valdes RN. mlb1 15:13 Triage Initiated mlb1 16:49 Patient moved to Triage 2 ttb 16:51 Patient visited by Margo Andrews, LEONARDO. ttb 17:32 Griffin Luciano RPA-C is PHCP. ck7 17:32 Nicci Roberson MD is Attending Physician. ck7 17:32 Patient visited by Griffin Luciano RPA-C. ck7 17:40 EKG done. (by ED staff). Reviewed by Griffin CORBETT. cmb 17:43 Patient visited by Candida Krueger. cmb 18:18 Patient visited by Griffin Luciano RPA-C. ck7 18:29 Patient visited by Candida Krueger. cmb 18:41 Patient moved to I mdr 19:10 The patient / caregiver is instructed regarding the plan of care and ED course. jmb 19:10 Cardiac Marker Panel Sent. jmb 19:10 Amylase Sent. jmb 19:10 Basic Metabolic Profile Sent. jmb 19:10 CBC with Diff Sent. jmb 19:10 Lipase Sent. jmb 19:10 Liver Profile Sent. jmb 19:10 D-Dimer Quant Sent. jmb 19:10 Inserted saline lock: 20 gauge in right antecubital area and blood collected. The jmb patient tolerated the procedure well. Labs drawn. (by ED staff). Sent per order to lab. 19:11 Chest, 2 View (pa\E\lat) Returned. EDMS 19:13 Patient visited by Kamlesh Frances RN. jmb 19:14 Patient moved to Ultrasound am17 19:29 Patient moved to I6 / am17 19:41 Patient visited by Jennifer Beckett. ajs 19:49 [facility] Payment Agreement was scanned into [employer] and attached to record. gjb 20:13 Patient visited by Griffin Luciano RPA-C. ck7 20:13 Gallbladder US Returned. EDMS 20:20 Patient name changed from Edwar\S\Melina\S\Nath\S\ to Edwar\S\ \S\Nath. EDMS 20:48 Patient visited by Griffin Luciano RPA-C. ck7 21:14 CT Chest Angio R/O PE Returned. EDMS 21:16 Patient visited by Kamlesh Frances RN. jmb 21:19 [facility] is Referral Physician. ck7 21:25 Discontinued lock intact, bleeding controlled, pressure dressing applied, No dsf redness/swelling at site. No procedures done that require assistance. 21:26 Patient visited by Jennifer Beckett. ajs 11/08 07:36 EKG-ADULT Returned. EDMS 12:58 T-Sheet-- Draft Copy was scanned into [employer]ingo and attached to record. gb 12:59 ECG/EKG was scanned into [employer] and attached to record. gb Administered Medications: 11/07 19:10 Drug: ketorolac 30 mg [ketorolac 30 mg/mL (1 mL) injection solution (1 mL)] Route: IVP; jmb Site: right antecubital; 19:10 Drug: NS 0.9% 1000 ml [sodium chloride 0.9 % intravenous solution] Route: IV; Rate: jmb bolus; Site: right antecubital; 21:28 Follow up: IV Status: Completed infusion; IV Intake: 1000ml dsf Point of Care Testing: Urine : 18:29 hCG Reading: Negative; Control Reading: Positive; cmb Ranges: Intake: 21:28 IV: 1000.00ml; Total: 1000.00ml. dsf Order Results: Lab Order: Amylase; SPEC'M 11/07/16 19:06 Test: AMYLASE; Value: 56; Range: 25-115; Units: U/L; Status: F Lab Order: Basic Metabolic Profile; SPEC'M 11/07/16 19:06 Test: GLUCOSE, FASTING; Value: 89; Range: 70-105; Units: MG/DL; Status: F Test: BLOOD UREA NITROGEN; Value: 6; Range: 7-18; Abnormal: Below low normal; Units: MG/DL; Status: F Test: CREATININE FOR GFR; Value: 0.86; Range: 0.55-1.02; Units: MG/DL; Status: F Test: SODIUM LEVEL; Value: 141; Range: 136-145; Units: MEQ/L; Status: F Test: POTASSIUM SERUM; Value: 3.9; Range: 3.5-5.1; Units: MEQ/L; Status: F Test: CHLORIDE LEVEL; Value: 106; Range: 98-107; Units: MEQ/L; Status: F Test: CARBON DIOXIDE LEVEL; Value: 27; Range: 21-32; Units: MEQ/L; Status: F Test: ANION GAP; Value: 8; Range: 8-16; Units: MEQ/L; Status: F Test: CALCIUM LEVEL; Value: 8.5; Range: 8.5-10.1; Units: MG/DL; Status: F Lab Order: CBC with Diff; SPEC'M 11/07/16 19:06 Test: WHITE BLOOD COUNT; Value: 5.4; Range: 4.0-10.0; Units: K/mm3; Status: F Test: RED BLOOD COUNT; Value: 4.76; Range: 4.00-5.40; Units: M/mm3; Status: F Test: HEMOGLOBIN; Value: 13.8; Range: 12.0-16.0; Units: g/dl; Status: F Test: HEMATOCRIT; Value: 41.3; Range: 36.0-47.0; Units: %; Status: F Test: MEAN CORPUSCULAR VOLUME; Value: 86.8; Range: 80.0-96.0; Units: fl; Status: F Test: MEAN CORPUSCULAR HEMOGLOBIN; Value: 28.9; Range: 27.0-33.0; Units: pg; Status: F Test: MEAN CORPUSCULAR HGB CONC; Value: 33.3; Range: 32.0-36.5; Units: g/dl; Status: F Test: RED CELL DISTRIBUTION WIDTH; Value: 12.7; Range: 11.5-14.5; Units: %; Status: F Test: PLATELET COUNT, AUTOMATED; Value: 285; Range: 150-450; Units: k/mm3; Status: F Test: NEUTROPHILS %; Value: 45.6; Range: 36.0-66.0; Units: %; Status: F Test: LYMPH %; Value: 40.5; Range: 24.0-44.0; Units: %; Status: F Test: MONO %; Value: 7.5; Range: 0.0-5.0; Abnormal: Above high normal; Units: %; Status: F Test: EOS %; Value: 2.0; Range: 0.0-3.0; Units: %; Status: F Test: BASO %; Value: 1.5; Range: 0.0-1.0; Abnormal: Above high normal; Units: %; Status: F Test: LARGE UNSTAINED CELL %; Value: 2.9; Range: 0.0-4.0; Units: %; Status: F Test: NEUTROPHILS #; Value: 2.5; Range: 1.8-7.7; Units: K/mm3; Status: F Test: LYMPH #; Value: 2.3; Range: 1.5-6.5; Units: K/mm3; Status: F Test: MONO #; Value: 0.4; Range: 0.0-0.8; Units: K/mm3; Status: F Test: EOS #; Value: 0.1; Range: 0.0-0.50; Units: K/mm3; Status: F Test: BASO #; Value: 0.1; Range: 0.0-0.2; Units: K/mm3; Status: F Test: LARGE UNSTAINED CELL #; Value: 0.2; Range: 0.0-0.4; Units: K/mm3; Status: F Lab Order: Lipase; SPEC'M 11/07/16 19:06 Test: LIPASE; Value: 110; Range: 73-393; Units: U/L; Status: F Lab Order: Liver Profile; SPEC'M 11/07/16 19:06 Test: AST/SGOT; Value: 8; Range: 15-37; Abnormal: Below low normal; Units: U/L; Status: F Test: ALT/SGPT; Value: 15; Range: 12-78; Units: U/L; Status: F Test: ALKALINE PHOSPHATASE; Value: 86; Range: 45-117; Units: U/L; Status: F Test: BILIRUBIN,TOTAL; Value: 0.4; Range: 0.2-1.0; Units: MG/DL; Status: F Test: BILIRUBIN,DIRECT; Value: < 0.1; Range: 0.0-0.2; Units: MG/DL; Status: F Test: TOTAL PROTEIN; Value: 7.8; Range: 6.4-8.2; Units: GM/DL; Status: F Test: ALBUMIN; Value: 3.6; Range: 3.2-5.2; Units: GM/DL; Status: F Test: ALBUMIN/GLOBULIN RATIO; Value: 0.86; Range: 1.00-1.93; Abnormal: Below low normal; Status: F Lab Order: Urinalysis; SPEC'M 11/07/16 18:41 Test: APPEARANCE, URINE; Value: CLEAR; Range: CLEAR; Status: F Test: COLOR, URINE; Value: YELLOW; Range: YELLOW; Status: F Test: PH,URINE; Value: 5.0; Range: 5.0-9.0; Units: UNITS; Status: F Test: SPECIFIC GRAVITY URINE AUTO; Value: 1.015; Range: 1.002-1.035; Status: F Test: PROTEIN, URINE AUTO; Value: NEGATIVE; Range: NEGATIVE; Units: mg/dL; Status: F Test: GLUCOSE, URINE (UA) AUTO; Value: NEGATIVE; Range: NEGATIVE; Units: mg/dL; Status: F Test: KETONE, URINE AUTO; Value: NEGATIVE; Range: NEGATIVE; Units: mg/dL; Status: F Test: UROBILINOGEN, URINE AUTO; Value: 0.2; Range: 0.0-2.0; Units: mg/dL; Status: F Test: BILIRUBIN, URINE AUTO; Value: NEGATIVE; Range: NEGATIVE; Status: F Test: NITRITE, URINE AUTO; Value: NEGATIVE; Range: NEGATIVE; Status: F Test: LEUKOCYTE ESTERASE, URINE AUTO; Value: NEGATIVE; Range: NEGATIVE; Status: F Test: BLOOD, URINE BLOOD; Value: 1+; Range: NEGATIVE; Abnormal: Above high normal; Status: F Test: WBC, URINE AUTO; Value: 2; Range: 0-3; Units: /HPF; Status: F Test: RBC, URINE AUTO; Value: 1; Range: 0-3; Units: /HPF; Status: F Test: BACTERIA, URINE AUTO; Value: 1+; Range: NEGATIVE; Abnormal: Above high normal; Status: F Test: SQUAMOUS EPITHELIAL CELL UR AU; Value: 2; Range: 0-6; Units: /HPF; Status: F Test: MUCUS, URINE; Value: SMALL; Range: NEGATIVE; Status: F Test: HYALINE CAST, URINE AUTO; Value: 0; Range: 0-1; Units: /LPF; Status: F Lab Order: Urine Culture; SPEC' 11/07/16 18:41 Test: URINE CULTURE; Value: <EXTERNAL COMMENT eCWMed> FULL REPORT IN LAB NOTES (eCW and Medent).; Status: F Test: URINE CULTURE; Value: URINE CULTURE RESULT NO GROWTH CLINICAL SIGNIFICANCE 1 ORGANISM; Status: F Lab Order: Cardiac Marker Panel; SPEC'M 11/07/16 19:06 Test: CPK CREATINE PHOSPHOKINASE; Value: 135; Range: 26-192; Units: U/L; Status: F Test: CK-MB VALUE MASS; Value: 1.0; Range: 0.0-3.6; Units: NG/ML; Status: F Test: MB/CK RELATIVE INDEX; Value: 0.74; Range: < OR =4; Status: F Test: TROPONIN I; Value: < 0.02; Range: < 0.10; Units: NG/ML; Status: F Test Note: ; DIAGNOSIS CRITERIA MMB ng/ml Relative Index (RI) NON-AMI < or = 5 N/A [place] > 5 < or = 4 AMI > 5 > 4 Lab Order: D-Dimer Quant; SPEC'M 11/07/16 19:06 Test: D-DIMER QUANT; Value: 2338.6; Range: <500; Abnormal: Above high normal; Units: ng/ml; Status: F Radiology Order: EKG-ADULT Test: EKG-ADULT REASON FOR EXAMINATION: Chest Pain; Stationary ECG Study; [facility] - ED; ; Test Date: 2016-11-07; Pat Name: EDWAR NATH Department:; Room: -; 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; : 1995 Requested By: Griffin Salmeron PA-C; Order Number: [id number] Reading MD: Sydnie Valdez; Measurements; Intervals [place]; Rate: 56 P: 36; ID: [id number] QRS: 33; QRSD: 80 T: 27; QT: 388; QTc: 376; Interpretive Statements; SINUS BRADYCARDIA; NO PRIOR FOR COMPARISON; Electronically Signed On 11-08-2016 7:24:22 EST by Sydnie Valdez; Radiology Order: Chest, 2 View (pa\E\lat) Test: Chest, 2 View (pa\E\lat) REASON FOR EXAMINATION: Chest Pain; Chest x-ray: Two views.; ; History: Chest pain .; ; Comparison study: No comparisons .; ; Findings: The lungs are well inflated and free of infiltrate. The pleural; angles are sharp. The heart size is normal. Pulmonary vasculature is not; increased. No significant bony abnormality is seen.; ; Impression:; ; Negative chest x-ray.; ; ; Signed by; Girish Potter MD 11/07/2016 06:58 P; Radiology Order: Gallbladder US Test: Gallbladder US REASON FOR EXAMINATION: Biliary Colic; ; CLINICAL HISTORY: Abdominal pain.; TECHNIQUE: Realtime sonographic images were obtained in multiple projections.; COMMENTS:; The liver is of normal size, parenchyma demonstrates normal echogenicity. No discrete hepatic mass is; seen.; There is no intra or extrahepatic biliary ductal dilatation. CBD measures 2 mm. The gallbladder is ph; ysiologically distended without evidence of calculi. The gallbladder wall is not thickened and there; is no pericholecystic fluid. There is no abdominal ascites.; The right kidney measures 10.2 cm , free of hydronephrosis.; IMPRESSION:; Unremarkable study.; Thank you for your kind referral of this patient.; ; Radiology Order: CT Chest Angio R/O PE Test: CT Chest Angio R/O PE REASON FOR EXAMINATION: CHEST PAIN, +D-DIMER, R/O PE; ; CLINICAL INDICATION: Evaluate for pulmonary embolism.; COMPARISON: None; TECHNIQUE: CT pulmonary angiogram was performed with intravenous contrast. 3D/MIPS technique was util; ized with multiplanar reconstructions in sagittal and coronal projections.; FINDINGS:; LINES AND DEVICES: None; PULMONARY ARTERY: The pulmonary artery is normal in caliber. There is no evidence of filling defects; in the main, right or left main, lobar, segmental, and visualized subsegmental pulmonary arteries.; AORTA: Normal in caliber with no evidence of gross dissection or aneurysm.; LOWER NECK/THYROID: Thyroid gland is unremarkable. No mass, suspicious cystic lesion, or enlarged wayne; nopathy.; AXILLA/HILUM/MEDIASTINUM : No enlarged adenopathy, mass, suspicious cystic lesion, or fluid collectio; n.; HEART: Heart is normal in size without pericardial effusion.; AIRWAYS, LUNGS AND PLEURA: No acute infiltrate, effusion, mass, suspicious nodule, or pneumothorax. C; entral and visualized peripheral airways are patent.; UPPER ABDOMEN: Visualized upper abdominal organs are unremarkable.; OSSEOUS STRUCTURES: No fracture or suspicious lesion; SOFT TISSUES AND THORACIC WALL : No soft tissue abnormality or hernia.; OTHER: No other significant abnormalities.; IMPRESSION:; No evidence of pulmonary embolism.; ; Outcome: 21:19 Discharge ordered by Provider. ck7 21:25 Discharge Assessment: Patient awake, alert and oriented x 3. No cognitive and/or dsf functional deficits noted. Patient verbalized understanding of disposition instructions. patient administered narcotics - no. The following High Risk Discharge criteria are identified: None. Discharged to home ambulatory. Condition: stable. Discharge instructions given to patient, Instructed on discharge instructions, follow up and referral plans. medication usage, Demonstrated understanding of instructions, medications, Pt was receptive of discharge instructions/ teaching. Prescriptions given X 2. CT Study completed. Property sent home with patient. 21:27 Patient left the ED. dsf Signatures: Dispatcher [employer] EDVandana Ricketts, Alan Santos RN RN mlb1 Amanda Zimmer,RN RN dsf Sujit, Jennifer Krueger, Candida cmb Ankita, Griffin, RPA-C RPA-Cck7 Margo Andrews, RN RN ttb Aarti Levine gr2 Kamlesh Frances,RN RN jmb Zluma Felder am17 Joel Waite, VP COMMUNICATIONS VP COMMUNICATIONS mdr Sil Lenz Chart Complete MTDD
== END 2016-11-07 21:27 | disposition home or self-care (01) ==
LOC: M ED 15:03
DX: R07.89 Other chest pain (principal); R10.10 Upper abdominal pain, unspecified; G43.909 Migraine, unspecified, not intractable, without status migrainosus
CPT/HCPCS: 36415; 71020; 71275; 76705; 80048; 80076; 81001; 81025; 82150; 82550; 82553; 83690; 85025; 85379; 87086; 93005; 96361; 96374; 99284; J1885; Q9967

== ENCOUNTER 2016-12-08 16:56 | Emergency (ER) | payer OTHER ==
--- NOTE | 2016-12-08 17:49 | REP ---
Clinical: Trauma. Technique: AP and frog lateral views of the left femur. Findings: The osseous structures and joint spaces are intact and normal. There is no evidence for acute fracture or dislocation. Small calcified granuloma is noted in the soft tissues overlying the distal femoral shaft. No subcutaneous emphysema or radiodense foreign body. Impression: No acute fracture or dislocation. Signed by Brian Trimble MD 12/08/2016 05:41 P
--- NOTE | 2016-12-08 17:50 | REP ---
Clinical: Trauma. Technique: AP, lateral, bilateral oblique and sunrise views left knee. Findings: The osseous structures and joint spaces are intact and normal. There is no evidence for acute fracture or dislocation. No joint effusion is appreciated. Surrounding soft tissues are unremarkable. No subcutaneous emphysema or radiodense foreign body. Impression: No acute fracture or dislocation. Signed by Brian Trimble MD 12/08/2016 05:42 P
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
== END 2016-12-08 18:42 | disposition home or self-care (01) ==
LOC: M ED 16:56
DX: S80.02XA Contusion of left knee, initial encounter (principal); V40.6XXA Car passenger injured in collision with pedestrian or animal in traffic accident, initial encounter; Y92.410 Unspecified street and highway as the place of occurrence of the external cause; Y93.89 Activity, other specified; Y99.8 Other external cause status; G43.909 Migraine, unspecified, not intractable, without status migrainosus; K21.9 Gastro-esophageal reflux disease without esophagitis; Z79.899 Other long term (current) drug therapy

== ENCOUNTER → 2017-04-11 | Outpatient (CLI) | payer OTHER ==
[~2017-04-11] MED LIST: IBUP80TA PO; NEXI40CA; ROBA500T PO; VITA1CAP40 PO
[2017-04-11 18:03] LABS: LUTEINIZING HORMONE 15.7 mIU/mL; PROGESTERONE 0.6 NG/ML; PROLACTIN 5.8 NG/ML
[2017-04-11 18:04] LABS: FOLLICLE STIMULATING HORMONE 7.7 mIU/mL
[2017-04-11 18:09] LABS: FREE T4 1.11 NG/DL (0.76-1.46)
== END ==
LOC: M SMT 14:00 → MERGE 14:00
PROVIDERS: ATTEND Specialist
DX: N93.8 Other specified abnormal uterine and vaginal bleeding (principal)

== ENCOUNTER → 2017-04-30 | Outpatient (REF) | payer OTHER | LOC: MERGE 20:52 → M LAB REF 20:52 | PROVIDERS: ATTEND Physician Assistant Medical | DX: N76.0 Acute vaginitis (principal) ==

== ENCOUNTER 2017-05-30 13:14 | Emergency (ER) | payer OTHER ==
[~2017-05-30] VITALS: Ht 160 cm; Wt 100.2 kg
[~2017-05-30 13:14] MED LIST changes: -IBUP80TA PO; -NEXI40CA; -ROBA500T PO
[2017-05-30] MEDS ORDERED: NEXI40CA (13:24)
[2017-05-30] MEDS ORDERED: ROBA500T PO (15:54)
[2017-05-30] MEDS ORDERED: IBUP80TA PO (15:54)
[2017-05-30 15:59] VITALS: BP 115/72
[2017-05-30] MEDS ORDERED: METHOCARBAMOL 500 MG TAB PO ONE (16:00)
[2017-05-30] MEDS ORDERED: IBUPROFEN 800 MG TAB PO ONE (16:00)
== END 2017-05-30 16:09 | disposition home or self-care (01) ==
LOC: M ED 13:14
DX: S29.001A Unspecified injury of muscle and tendon of front wall of thorax, initial encounter (principal); K21.9 Gastro-esophageal reflux disease without esophagitis; F17.210 Nicotine dependence, cigarettes, uncomplicated; X58.XXXA Exposure to other specified factors, initial encounter; Y92.9 Unspecified place or not applicable; Y99.9 Unspecified external cause status; Y93.9 Activity, unspecified

== ENCOUNTER 2017-10-20 11:09 | Emergency (ER) | payer OTHER ==
[2017-10-20 11:45] LABS: BASO # 0.1 10^3/uL (0.0-0.2); BASO % 0.7 % (0.0-1.0); EOS # 0.1 10^3/uL (0.0-0.50); EOS % 0.9 % (0.0-3.0); HEMATOCRIT 37.1 % (36.0-47.0); HEMOGLOBIN 12.5 g/dl (12.0-16.0); IMMATURE GRANULOCYTE % 0.3 % (0-0); LYMPH # 2.8 10^3/uL (1.5-6.5); LYMPH % 36.8 % (24.0-44.0); MEAN CORPUSCULAR HEMOGLOBIN 27.8 pg (27.0-33.0); MEAN CORPUSCULAR HGB CONC 33.7 g/dl (32.0-36.5); MEAN CORPUSCULAR VOLUME 82.6 fl (80.0-96.0); MONO # 0.7 10^3/uL (0.0-0.8); MONO % 9.7 % (0.0-5.0); NEUTROPHILS # 3.9 10^3/uL (1.8-7.7); NEUTROPHILS % 51.6 % (36.0-66.0); PLATELET COUNT, AUTOMATED 337 10^3/uL (150-450); RED BLOOD COUNT 4.49 10^6/uL (4.00-5.40); RED CELL DISTRIBUTION WIDTH 13.4 % (11.5-14.5); WHITE BLOOD COUNT 7.6 10^3/uL (4.0-10.0)
[2017-10-20 11:49] LABS: KETONE, URINE AUTO RFX NEGATIVE (NEGATIVE); LEUKOCYTE ESTERASE UR AUTO RFX NEGATIVE (NEGATIVE); MUCUS, URINE RFX SMALL (NEGATIVE); NITRITE, URINE AUTO RFX NEGATIVE (NEGATIVE); RBC, URINE AUTO RFX 2 /HPF (0-3); SPECIFIC GRAVITY UR AUTO RFX 1.019 (1.002-1.035); SQUAM EPITHELIAL CELL UR AURFX 1 /HPF (0-6); WBC, URINE AUTO RFX 1 /HPF (0-3)
[2017-10-20 11:57] LABS: CONTROL LINE HCG INT CTR LINE PRESENT; HCG, SERUM QUALITATIVE NEGATIVE (NEGATIVE)
[2017-10-20 12:05] LABS: ALBUMIN 3.7 GM/DL (3.2-5.2); ALBUMIN/GLOBULIN RATIO 0.93 (1.00-1.93); ALKALINE PHOSPHATASE 74 U/L (45-117); ALT/SGPT 53 U/L (12-78); ANION GAP 6 MEQ/L (8-16); AST/SGOT 24 U/L (7-37); BILIRUBIN,TOTAL 0.3 MG/DL (0.2-1.0); BLOOD UREA NITROGEN 9 MG/DL (7-18); CALCIUM LEVEL 8.5 MG/DL (8.5-10.1); CARBON DIOXIDE LEVEL 28 MEQ/L (21-32); CHLORIDE LEVEL 108 MEQ/L (98-107); CREATININE FOR GFR 0.81 MG/DL (0.55-1.02); GLOMERULAR FILTRATION RATE > 60.0 (>60); GLUCOSE, FASTING 112 MG/DL (70-105); LIPASE 131 U/L (73-393); POTASSIUM SERUM 3.9 MEQ/L (3.5-5.1); SODIUM LEVEL 142 MEQ/L (136-145); TOTAL PROTEIN 7.7 GM/DL (6.4-8.2)
[2017-10-20] MEDS: MAGNESIUM CITRATE 300 ML BTL PO (13:12)
== END 2017-10-20 13:13 | disposition home or self-care (01) ==
LOC: M ED 11:09
DX: J30.9 Allergic rhinitis, unspecified (principal); K59.00 Constipation, unspecified; M54.9 Dorsalgia, unspecified; E55.9 Vitamin D deficiency, unspecified; J30.2 Other seasonal allergic rhinitis; Z79.899 Other long term (current) drug therapy
CPT/HCPCS: 74021

== ENCOUNTER 2018-03-17 08:56 | Emergency (ER) | payer OTHER | END 2018-03-17 09:36 | disposition home or self-care (01) | LOC: M ED 08:56 | DX: J02.0 Streptococcal pharyngitis (principal); R03.0 Elevated blood-pressure reading, without diagnosis of hypertension; E28.2 Polycystic ovarian syndrome; G43.909 Migraine, unspecified, not intractable, without status migrainosus; Z72.0 Tobacco use; Z79.899 Other long term (current) drug therapy | CPT/HCPCS: 87880 ==

== ENCOUNTER 2018-05-14 14:48 | Emergency (ER) | payer OTHER | END 2018-05-14 16:55 | disposition home or self-care (01) | LOC: M ED 14:48 | DX: R53.81 Other malaise (principal); J01.90 Acute sinusitis, unspecified; E28.2 Polycystic ovarian syndrome; Z79.899 Other long term (current) drug therapy | CPT/HCPCS: 87880 ==

== ENCOUNTER 2018-09-13 14:21 | Emergency (ER) | payer OTHER ==
[2018-09-13] MEDS: ACETAMINOPHEN TAB 650MG DOSE (2X325MG) PO (15:45)
[2018-09-13 16:18] LABS: INFLUENZA A AMPLIFICATION NEGATIVE (NEGATIVE); INFLUENZA B AMPLIFICATION NEGATIVE (NEGATIVE)
== END 2018-09-13 16:42 | disposition home or self-care (01) ==
LOC: M ED 14:21
DX: B34.9 Viral infection, unspecified (principal); F17.200 Nicotine dependence, unspecified, uncomplicated
CPT/HCPCS: 87502

== ENCOUNTER 2018-10-14 18:25 | Emergency (ER) | payer OTHER ==
[~2018-10-14] VITALS: Ht 160 cm; Wt 90.5 kg
[~2018-10-14 18:25] MED LIST changes: +CEFD1CAP8 PO; +FLON1SPR; +FLON1SPR NARES; +IBUP80TA PO; +MULT1CHW26 PO; +NEXI40CA; +PENI250T57 PO; +ROBA500T PO; -VITA1CAP40 PO; +VITA50005 PO; +ZOFR4TAB14 PO
[2018-10-14] MEDS ORDERED: ACET1TAB55 PO (18:32)
[2018-10-14] MEDS ORDERED: IBUPROFEN 600 MG TAB PO ONE (19:15)
[2018-10-14 19:18] LABS: URINE PREG TEST NEGATIVE (NEGATIVE)
--- NOTE | 2018-10-14 21:16 | REPVR ---
EXAM: US Pelvis Complete, Transabdominal and US Pelvis, Transvaginal EXAM DATE/TIME: 10/14/2018 8:26 PM CLINICAL HISTORY: 22 years old, female; Pain; Pelvic pain; Additional info: Severe pelvic pain TECHNIQUE: Real-time transabdominal and transvaginal pelvic ultrasound (complete) with image documentation. Transvaginal imaging was used for better evaluation of the endometrium and adnexa. COMPARISON: US PELVIC NON-OB COMPLETE 03/08/2017 11:59 AM FINDINGS: Uterus/cervix: 7.5 x 4.4 x 4.8 cm. Normal endometrial thickness, measuring approximately 7 mm. Right adnexa: 4.2 x 1.5 x 2 cm. Multiple follicles. No mass. Normal ovarian blood flow. Left adnexa: 2.7 x 1.5 x 2.8 cm. Multiple follicles. No mass. Normal ovarian blood flow. Free fluid: None. Bladder: Normal. IMPRESSION: No acute sonographic findings. Electronically signed by: Alan Luna On 10/14/2018 21:16:06 PM
[2018-10-14 21:28] VITALS: BP 116/70
[2018-10-14] MEDS ORDERED: IBUP-1022 PO (21:37)
== END 2018-10-14 21:45 | disposition home or self-care (01) ==
LOC: M ED 18:25
DX: R10.2 Pelvic and perineal pain (principal)